=== PATIENT | male | born 1955 | race Caucasian/White ===

== ENCOUNTER 2016-11-29 17:31 | Emergency (ER) | payer BC ==
[2016-11-29 16:23] LABS: BASOPHILS 0.1 %; BASOPHILS ABSOLUTE 0.01 10/3/uL (0.0-0.16); EOSINOPHILS 0.7 %; EOSINOPHILS ABSOLUTE 0.06 10/3/uL (0.0-0.53); HEMATOCRIT 45.1 % (40.0-51.0); HEMOGLOBIN 15.7 g/dL (13.6-17.8); IMMATURE GRANULOCYTES 0.2 %; IMMATURE GRANULOCYTES ABSOLUTE 0.02 10/3/uL (0.0-0.11); LYMPHOCYTES 17.7 %; LYMPHOCYTES ABSOLUTE 1.45 10/3/uL (0.67-4.30); MEAN CORPUS HGB CONC 34.8 g/dL (32.0-36.0); MEAN CORPUSCULAR HEMOGLOB 32.2 pg (26.0-34.0); MEAN PLATELET VOLUME 10.2 fL (9.2-13.0); MONOCYTES ABSOLUTE 0.41 10/3/uL (0.21-1.20); NEUTROPHILS 76.3 %; NEUTROPHILS ABSOLUTE 6.24 10/3/uL (2.02-8.40); PLATELET COUNT 206 10/3/uL (150-400); RBC DISTRIBUTION WIDTH 12.9 % (12.0-16.0); RED CELL COUNT 4.88 10/6/uL (4.7-6.1); WHITE BLOOD CELLS 8.2 10/3/uL (4.5-10.5)
[2016-11-29 16:24] LABS: MANUAL DIFF NO %; MEAN CORPUSCULAR VOLUME 92.4 fL (80-100)
[2016-11-29 16:31] LABS: ASCORBIC ACID (UR NOT ORDER) NEG (NEG); BILIRUBIN, URINE NEGATIVE (NEG); ER URINALYSIS TAT 0 Hrs 12 Mins; KETONE, URINE NEGATIVE (NEG); LEUKOCYTE ESTERASE(NOT OR NEG (NEG); NITRITE (URINE) NEG (NEG); WBC (NOT ORDERED) (RFLEX) < 1 (0-5)
[2016-11-29 16:37] LABS: A/G RATIO 1.2 (0.7-1.9); ALBUMIN 3.9 G/DL (3.5-5.0); ALKALINE PHOSPHATASE 60 U/L (45-117); BUN (BLOOD UREA NITROGEN) 20 MG/DL (6-23); CALCIUM, SERUM 8.7 MG/DL (8.5-10.4); CHLORIDE, SERUM 105 MMOL/L (96-112); CO2 (CARBON DIOXIDE) 27 MMOL/L (24-34); CREATININE 1.79 MG/DL (0.70-1.30); GFR AFRICAN AMERICAN 47 ML/MIN (>=60); GFR NON AFRICAN AMERICAN 40 ML/MIN (>=60); GLOBULIN 3.2 G/DL (2.5-4.1); GLUCOSE, SERUM 177 MG/DL (60-99); POTASSIUM, SERUM 3.8 MMOL/L (3.5-5.3); SGPT(ALT) 24 U/L (5-65); SODIUM, SERUM 142 MMOL/L (135-148); TOTAL BILIRUBIN 0.5 MG/DL (0-1.2); TOTAL PROTEIN 7.1 G/DL (6.0-8.5)
[2016-11-29 16:39] LABS: SGOT(AST) 17 U/L (5-40)
[~2016-11-29 17:31] MED LIST: ASAB PO; HYDROCHLOROT25 MG PO; LOTE10 PO; MULTIPLE VIT PO; PRILO PO; ZOCOR40 PO
[2016-12-13] MEDS ORDERED: AMARYL2 PO (14:28)
[2016-12-13] MEDS ORDERED: FLOMAX4 PO (14:28)
== END 2016-11-29 18:25 | disposition home or self-care (01) ==
LOC: ER 17:31
PROVIDERS: Nurse Practitioner
DX: R10.31 Right lower quadrant pain (principal); I12.9 Hypertensive chronic kidney disease with stage 1 through stage 4 chronic kidney disease, or unspecified chronic kidney disease; N18.9 Chronic kidney disease, unspecified; E11.9 Type 2 diabetes mellitus without complications; Z79.82 Long term (current) use of aspirin; Z79.899 Other long term (current) drug therapy
CPT/HCPCS: 74176; 80053; 81001; 83690; 85025; 96374; 99285; J1170; J2405

== ENCOUNTER 2016-12-22 08:53 | Day surgery (SDC) | payer BC ==
--- NOTE | ~2016-12-22 | EGD ---
EGD REPORT [facility] [address] [address] NAME: DES CORTEZ : [birth year] STATUS : [facility] PAT#: [id number] AGE: 61 ADM/REG DATE : 12/22/16 MR#: [id number] REPORT SERV DATE: 12/22/16 DICTATED BY: TYSHAWN CHUNG DATE: 12/22/16 REPORT STATUS : Draft [facility]ANSCRIBED BY: [facility] DATE: 12/22/16 [facility] Center Patient Name: Des Cortez Date of : 1955 Attending MD: TYSHAWN CHUNG MD Procedure Date No Time: 12/22/2016 Procedure: Colonoscopy Indications: Screening for colorectal malignant neoplasm Referring MD: NATHALY LAM MD Medicines: Monitored Anesthesia Care Complications: No immediate complications. Procedure: Pre-Anesthesia Assessment: - ASA Grade Assessment: III - A patient with severe systemic disease. After I obtained informed consent, the scope was passed under direct vision. Throughout the procedure, the patient's blood pressure, pulse, and oxygen saturations were monitored continuously. The CF [id number] was introduced through the anus and advanced to the cecum, identified by appendiceal orifice and ileocecal valve. The colonoscopy was performed without difficulty. The patient tolerated the procedure well. The quality of the bowel preparation was good. Findings: The digital rectal exam was normal. Pertinent negatives include no palpable rectal lesions. A few diverticula were found in the sigmoid colon. Hemorrhoids were found during retroflexion and were mild. Two sessile polyps were found in the ascending colon. The polyps were 3 to 5 mm in size. These polyps were removed with a cold biopsy forceps. Resection and retrieval were complete. A sessile polyp was found in the cecum. The polyp was 4 mm in size. The polyp was removed with a cold biopsy forceps. Resection and retrieval were complete. Impression: - Diverticulosis in the sigmoid colon. - Hemorrhoids. Recommendation: - Patient has a contact number available for emergencies. The signs and symptoms of potential delayed complications were discussed with the patient. Return to normal activities tomorrow. Written discharge instructions were provided to the patient. - Regular diet. EGD REPORT [address] [address] NAME: DES CORTEZ : [birth year] STATUS : [facility] PAT#: [id number] AGE: 61 ADM/REG DATE : 12/22/16 MR#: [id number] REPORT SERV DATE: 12/22/16 DICTATED BY: TYSHAWN CHUNG DATE: 12/22/16 REPORT STATUS : Draft TRANSCRIBED BY: [employer] DATE: 12/22/16 - Continue present medications. - Await pathology results. - Return to GI clinic PRN. - Repeat colonoscopy for surveillance based on pathology results. Procedure Code(s): --- Professional --- 18382, Colonoscopy, flexible, proximal to splenic flexure; with biopsy, single or multiple Diagnosis Code(s): --- Professional --- K64.9, Unspecified hemorrhoids K57.30, Diverticulosis of large intestine without perforation or abscess without bleeding Z12.11, Encounter for screening for malignant neoplasm of colon CPT copyright 2013 [employer]. All rights reserved. The codes documented in this report are preliminary and upon awning installer review may be revised to meet current compliance requirements. TYSHAWN CHUNG MD 12/22/2016 11:15 AM This report has been signed electronically. Number of Addenda: 0 Note Initiated On: 12/22/2016 10:46 AM Scope Withdrawal Time 0 hours 8 minutes 50 seconds [id number] [place] [id number]
[~2016-12-22 08:53] MED LIST changes: +AMARYL2 PO; +FLOMAX4 PO
== END 2016-12-22 23:59 | disposition home or self-care (01) ==
LOC: DMU 08:53
PROVIDERS: Internal Medicine Gastroenterology
PROC: 0DBH8ZX Excision of Cecum, Via Natural or Artificial Opening Endoscopic, Diagnostic (ICD-10-PCS; 2016-12-22)
PROC: 0DBK8ZX Excision of Ascending Colon, Via Natural or Artificial Opening Endoscopic, Diagnostic (ICD-10-PCS; principal; 2016-12-22 10:30)
DX: Z12.11 Encounter for screening for malignant neoplasm of colon (principal); D12.2 Benign neoplasm of ascending colon; D12.0 Benign neoplasm of cecum; K64.9 Unspecified hemorrhoids; K57.30 Diverticulosis of large intestine without perforation or abscess without bleeding; I12.9 Hypertensive chronic kidney disease with stage 1 through stage 4 chronic kidney disease, or unspecified chronic kidney disease; E11.22 Type 2 diabetes mellitus with diabetic chronic kidney disease; N18.9 Chronic kidney disease, unspecified; G47.33 Obstructive sleep apnea (adult) (pediatric); Z88.0 Allergy status to penicillin; Z88.5 Allergy status to narcotic agent; Z79.82 Long term (current) use of aspirin; Z79.899 Other long term (current) drug therapy; Z90.89 Acquired absence of other organs; Z99.89 Dependence on other enabling machines and devices; Z98.890 Other specified postprocedural states; Z98.1 Arthrodesis status
CPT/HCPCS: 82962; 88305

== ENCOUNTER 2017-02-16 06:12 | Day surgery (SDC) | payer BC ==
[2017-02-15 10:43] LABS: HEMATOCRIT 45.7 % (40.0-51.0); HEMOGLOBIN 15.7 g/dL (13.6-17.8)
[2017-02-15 11:02] LABS: A/G RATIO 1.2 (0.7-1.9); ALKALINE PHOSPHATASE 59 U/L (45-117); BUN (BLOOD UREA NITROGEN) 22 MG/DL (6-23); CALCIUM, SERUM 9.2 MG/DL (8.5-10.4); CHLORIDE, SERUM 105 MMOL/L (96-112); CO2 (CARBON DIOXIDE) 29 MMOL/L (24-34); CREATININE 1.65 MG/DL (0.70-1.30); GFR AFRICAN AMERICAN 52 ML/MIN (>=60); GFR NON AFRICAN AMERICAN 44 ML/MIN (>=60); GLOBULIN 3.3 G/DL (2.5-4.1); GLUCOSE, SERUM 150 MG/DL (60-99); POTASSIUM, SERUM 3.7 MMOL/L (3.5-5.3); SGOT(AST) 19 U/L (5-40); SGPT(ALT) 29 U/L (5-65); SODIUM, SERUM 142 MMOL/L (135-148); TOTAL PROTEIN 7.3 G/DL (6.0-8.5)
--- NOTE | ~2017-02-16 | OP ---
Record Of Operation [facility] [address] [place]. [address] NAME: JORGE A GALO : [birth year] STATUS : [facility]#: [id number] AGE: 61 ADM/REG DATE : 02/16/17 MR#: [id number] REPORT SERV DATE: 02/16/17 DICTATED BY: SHANE CHOI DATE: 02/16/17 REPORT STATUS : Draft TRANSCRIBED BY: [employer] DATE: 02/16/17 DATE OF PROCEDURE: 02/16/2017 PREOPERATIVE DIAGNOSIS: Incarcerated umbilical hernia. POSTOPERATIVE DIAGNOSIS: Incarcerated umbilical hernia. PROCEDURE: Reduction and mesh patch repair of incarcerated umbilical hernia. DESCRIPTION OF OPERATIVE PROCEDURE: The patient was brought to the operating suite, placed in a supine position, underwent satisfactory general endotracheal anesthesia without incident. The skin of the abdomen was scrubbed, prepped, and draped in usual sterile fashion. 0.5% Marcaine with epinephrine was utilized as supplemental local anesthesia. Initially, a curvilinear infraumbilical incision was performed dissecting through the skin and subcutaneous tissue. The umbilical skin was elevated up off the incarcerated umbilical defect, which was approximately 7 or 8 mm in size and had preperitoneal fat protruding through the muscular aponeurotic fascia. The preperitoneal fat and hernia sac was excised and then a circumferential dissection around the hernia defect was performed elevating the subcutaneous tissue off the muscular aponeurotic fascia. A PVPM patch was employed, it was dipped in local anesthesia, rolled up like a taco, placed in the peritoneal cavity. It was withdrawn impacting it into the underneath surface of the rectus sheaths bilaterally. Full-thickness stay sutures of 0 Ethibond were placed full-thickness through the medial aspect of the rectus muscles, taking an intervening bite of the patch, and plicated into the back of the rectus sheath bilaterally, these were tied down. Suturing tails were trimmed in a "[id number]" interrupted vertical mattress fashion, three separate placed sutures of 0 Ethibond were used to draw the cephalad aspect of the umbilical fascia over the caudad aspect, these were tied down. Sutures and mesh were trimmed and then subcutaneous tissues irrigated and closed with interrupted 3-0 Vicryl, running subcuticular stitch 4-0 Vicryl for the skin. Dermabond skin adhesive placed. The patient tolerated the procedure well and was returned to PACU in stable condition. At the termination of the procedure, sponge, needle, lap, and instrument counts were correct x3. ESTIMATED BLOOD LOSS: 5 mL. /MODL Record Of Operation [facility] [address] [place] [address] NAME: JORGE A GALO : [birth year] STATUS : [facility]#: [id number] AGE: 61 ADM/REG DATE : 02/16/17 MR#: [id number] REPORT SERV DATE: 02/16/17 DICTATED BY: SHANE CHOI DATE: 02/16/17 REPORT STATUS : Draft TRANSCRIBED BY: OLIVIA DATE: 02/16/17 Shane Choi M.D. / [id number] CC: Rosalba Arredondo M.D.
== END 2017-02-16 11:51 | disposition home or self-care (01) ==
LOC: SDC 06:12
PROVIDERS: Specialist
PROC: 0WUF0JZ Supplement Abdominal Wall with Synthetic Substitute, Open Approach (ICD-10-PCS; principal; 2017-02-16 07:45)
DX: K42.0 Umbilical hernia with obstruction, without gangrene (principal); E11.9 Type 2 diabetes mellitus without complications; E78.5 Hyperlipidemia, unspecified; K21.9 Gastro-esophageal reflux disease without esophagitis; N40.0 Benign prostatic hyperplasia without lower urinary tract symptoms; G47.33 Obstructive sleep apnea (adult) (pediatric); I12.9 Hypertensive chronic kidney disease with stage 1 through stage 4 chronic kidney disease, or unspecified chronic kidney disease; N18.9 Chronic kidney disease, unspecified; F17.200 Nicotine dependence, unspecified, uncomplicated; Z88.5 Allergy status to narcotic agent; Z88.0 Allergy status to penicillin; Z98.890 Other specified postprocedural states; Z79.899 Other long term (current) drug therapy; Z98.1 Arthrodesis status; Z99.89 Dependence on other enabling machines and devices; Z90.89 Acquired absence of other organs
CPT/HCPCS: 80053; 82962; 85014; 85018; 87641; 93005; A9270-GY; C1781; J0690; J1170; J2250; J2405; J2710; J3010